=== PATIENT | female | born 1980 | race Caucasian/White ===

== ENCOUNTER 2020-12-19 14:01 | Outpatient (CLI) | payer OTHER, SELFPAY ==
--- NOTE | ~2020-12-19 | XR_ITS ---
XR chest 2V DATE: 12/19/2020 14:33 INDICATION: Rhonchi TECHNIQUE: PA and lateral views COMPARISON: None FINDINGS: Normal heart size. No hilar or mediastinal enlargement. Bilateral moderate hyperinflation. No pulmonary infiltrate or consolidation, pleural effusion or pulm onary vascular congestion or pneumothorax. IMPRESSION: Moderate hyperinflation; no active cardiopulmonary disease Reviewed, dictated and finalized at location B.
== END 2020-12-19 14:02 | disposition home or self-care (01) ==
LOC: ANHIMG 14:10
PROVIDERS: PCP Nurse Practitioner Family; Visit Provider Nurse Practitioner Family
DX: R09.89 Other specified symptoms and signs involving the circulatory and respiratory systems (principal); R91.8 Other nonspecific abnormal finding of lung field
CPT/HCPCS: 71046

== ENCOUNTER 2021-01-02 15:30 | Outpatient (CLI) | payer OTHER, SELFPAY ==
--- NOTE | ~2021-01-02 | US_ITS ---
EXAMINATION: US thyroid DATE: 01/02/2021 16:03 INDICATION: Loss of voice. TECHNIQUE: Multiple ultrasound images of the thyroid were obtained. COMPARISON: None. FINDINGS: The right thyroid lobe measures 5.4 x 2.1 x 1.7 cm. The left thyroid lobe measures 5.2 x 1.9 x 1.4 c m. In the right thyroid lobe, there is a 4 mm nodule. IMPRESSION: 1. Small thyroid nodule, likely not clinically significant. No follow-up is needed. Reviewed, dictated and finalized at location A. IMPRESSION: 1. Small thyroid nodule, likely not clinically significant. No follow-up is nee ded.
== END 2021-01-02 15:31 | disposition home or self-care (01) ==
LOC: ANHIMG 15:36
PROVIDERS: PCP Nurse Practitioner Family; Visit Provider Nurse Practitioner Family
DX: R49.1 Aphonia (principal); E04.1 Nontoxic single thyroid nodule
CPT/HCPCS: 76536

== ENCOUNTER 2021-01-03 08:02 | Outpatient (CLI) | payer OTHER, SELFPAY ==
--- NOTE | ~2021-01-03 | MM_ITS ---
EXAMINATION: MM screening sharyn BI w diego HISTORY: Screening TECHNIQUE: Craniocaudal and mediolateral oblique 3-D tomosynthesis images were obtained and synthetic 2-D images were generated. CAD analysis was submitted and interpreted. COMPARISON: 03/12/2014 BREAST PARENCHYMAL COMPOSITION: The breasts are heterogeneously dense, which may obscure small masses . FINDINGS: There is no evidence of suspicious mass, calcification, or architectural distortion to sugg est malignancy in either breast. There has been no suspicious interval change. IMPRESSION: 1. No mammographic evidence of malignancy. 2. Recommend routine screening mammography in one year. BI-RADS Category 1: Negative Reviewed, dictated and finalized at location A.
== END 2021-01-03 08:03 | disposition home or self-care (01) ==
LOC: ANHIMG 08:04
PROVIDERS: PCP Nurse Practitioner Family; Visit Provider Obstetrics & Gynecology
DX: Z12.31 Encounter for screening mammogram for malignant neoplasm of breast (principal)
CPT/HCPCS: 77063; 77067

== ENCOUNTER 2021-02-06 08:11 | Outpatient (CLI) | payer OTHER, SELFPAY ==
--- NOTE | 2021-02-06 14:05 | WPDPFTINT ---
PFT Procedure Performed PFT Procedure Performed Spirometry with Pre/Post Bronchodilator Plethysmography (Lung Vol) Diffusing Cap (DLCO) Flow Vol Loop PFT Interpretation This is a pulmonary function test with pre and post-bronchodilator spirometry, plethysmography and diffusing capacity. The test was performed and results interpreted in accordance with the 2019 and 2005 ATS/ERS Task Force guidelines respectively using the Global Lung Function Initiative-2012 reference equations. Patient demonstrated good effort and cooperation. Reproducibility criteria were met. The quality of the pre bronchodilator spirometry maneuver was Grade A and post bronchodilator spirometry maneuver was Grade A. Findings: Spirometry: the contour of the inspiratory and expiratory flow tracing are normal. The pre bronchodilator FVC is 5.35 L, 135% predicted. The pre bronchodilator FEV1 is 4.05 L, 125% predicted. The FEV1: FVC ratio 76%. The post bronchodilator FVC is 5.19 L, representing a 3% decrease. The post bronchodilator FEV1 is 4.10 L, representing 1% increase. The post bronchodilator FEV1: FVC ratio 79%. Plethysmography: The total lung capacity is 7.11 L, 132% predicted. The functional residual capacity is 4.15 L, 139% predicted. The residual volume is 1.76 L, 104% predicted. Diffusion capacity: The absolute diffusion capacity is 25.9, 105% predicted. The diffusing capacity corrected for alveolar volume is 4.48, 96% predicted. Impression: The spirometry is normal without evidence of an obstructive abnormality. There is no significant improvement after inhaling a single dose of albuterol. Hyperinflation is present is demonstrated by the increase in functional residual capacity and total lung capacity. The diffusing capacity is normal. There are no prior studies for comparison
== END 2021-02-06 08:12 | disposition home or self-care (01) ==
LOC: ANHPFT 08:14
PROVIDERS: PCP Nurse Practitioner Family; Visit Provider Nurse Practitioner Family
DX: R09.89 Other specified symptoms and signs involving the circulatory and respiratory systems (principal)
CPT/HCPCS: 94060; 94726; 94729

== ENCOUNTER 2021-04-18 08:11 | Outpatient (CLI) | payer OTHER, SELFPAY ==
--- NOTE | ~2021-04-18 | CT_ITS ---
EXAMINATION: CT diagnostic chest wo con EXAM DATE: 04/18/2021 08:53 INDICATION: Dyspnea on exertion. Chest pain. TECHNIQUE: Spiral CT of the chest without contrast. Axial, coronal and sagittal images of the chest were reviewed. Coronal maximum intensity pixel images of chest reviewed. The dose-length product ( DLP) for this examination was 154.79 mGy-cm. The exposure was tailored according to patient size (au to mA exposure control), and iterative reconstruction (ASIR) was used as additional dose reduction [place]. There is no prior study for comparison. FINDINGS: The lungs are clear. Moderate hyperinflation and mild emphysema. There are no pleural or p ericardial effusions. Tracheobronchial tree is patent. There is no mediastinal, hilar or axillary lymphadenopathy. There is no pneumothorax. Heart normal in size. No evidence of coronary arter ial calcification. Upper abdomen is unremarkable. There is thoracic spondylosis without osteoblast ic or osteolytic lesions identified. IMPRESSION: Moderate hyperinflation. Mild emphysema. Reviewed, dictated and finalized at location A. [employer]
== END 2021-04-18 08:12 | disposition home or self-care (01) ==
LOC: ANHIMG 08:18
PROVIDERS: PCP Nurse Practitioner Family
DX: R06.02 Shortness of breath (principal); R91.8 Other nonspecific abnormal finding of lung field; J43.9 Emphysema, unspecified
CPT/HCPCS: 71250

== ENCOUNTER 2021-10-19 17:25 | Outpatient (CLI) | payer OTHER, SELFPAY ==
--- NOTE | ~2021-10-19 | XR_ITS ---
XR foot RT min 3V 10/19/2021 17:45 Indication: Right foot pain Procedure: 4 views right foot Comparison: No prior studies for comparison. Findings: There is an avulsion fracture proximal aspect of the fifth metatarsal. No other fracture. L isfranc joint intact. No significant soft tissue abnormality. Impression: 1: Nondisplaced avulsion fracture proximal aspect of the right fifth metatarsal. Reviewed, dictated and finalized at location A. Impression: 1: Nondisplaced avulsion fracture proximal aspect of the right fifth metatarsal .
== END 2021-10-19 17:26 | disposition home or self-care (01) ==
PROVIDERS: PCP Nurse Practitioner Family; Visit Provider Nurse Practitioner Family
DX: M79.671 Pain in right foot (principal); S92.354A Nondisplaced fracture of fifth metatarsal bone, right foot, initial encounter for closed fracture
CPT/HCPCS: 73630